=== PATIENT | male | born 1990 | race Caucasian/White ===

== ENCOUNTER 2018-03-12 13:49 | Emergency (ER) | payer OTHER, SELFPAY ==
[2018-03-12 13:50] VITALS: BP 110/72; PULSE 80; RESP 18; TEMP 36.1; O2SAT 100
[2018-03-12 15:02] LABS: INR 1.4 (0.9-1.3); Prothrombin Time 15.8 SECONDS (10.1-12.7)
[2018-03-12 15:05] LABS: PTT Partial Thromboplastin Tim 36 SECONDS (26.4-36.2)
[2018-03-12 15:06] LABS: Add Manual Diff / Slide Review NO; Eosinophils Percent Auto 2.3 % (2-4); Hematocrit 39.8 % (41-53); Hemoglobin 13.9 g/dL (13.5-17.5); Lymphocytes Percent Auto 27.6 % (25-40); Mean Corpuscular HGB Conc 34.9 % (30-36); Mean Corpuscular Hemoglobin 30.9 PG (26-34); Mean Corpuscular Volume 88.5 fL (80-100); Monocytes Percent Auto 10.2 % (3-14); Neutrophils Absolute Auto 1900 /uL (3000-5900); Neutrophils Percent Auto 58.9 % (50-75); Platelet Count 151 X10^3/uL (150-400); Red Cell Distribution Width 15.3 % (11.6-14.8); White Blood Cell Count 3.3 X10^3/uL (4.5-11.0)
[2018-03-12 15:07] LABS: Albumin 3.8 g/dL (3.5-5.0); Albumin Globulin Ratio 1.1 (1.0-2.8); Alkaline Phosphatase 96 U/L (38-126); Bilirubin Total 5.9 mg/dL (0.2-1.3); Blood Urea Nitrogen 12 mg/dL (9-20); Calcium 8.8 mg/dL (8.4-10.2); Carbon Dioxide 34 mmol/L (22-32); Chloride 98 mmol/L (98-107); Estimated Glomerular Filt Rate > 60.0 mL/min (>60); Globulin 3.6 g/dL (1.7-4.1); Glucose 104 mg/dL (70-100); HEMOLYSIS < 15 (0-50); Lipase 57 U/L (23-300); Potassium 4.4 mmol/L (3.4-5.1); Sodium 140 mmol/L (137-145); Total Protein 7.4 g/dL (6.3-8.2)
[2018-03-12 15:31] LABS: Alanine Aminotransferase 3700 IU/L (21-72); Aspartate Aminotransferase 3117 IU/L (17-59)
--- NOTE | 2018-03-12 16:36 | DI.US.S_ITS ---
PROCEDURE: US ABDOMEN COMPLETE INDICATIONS: eleated liver enzyemes TECHNIQUE: Real-time scanning was performed of the abdominal and retroperitoneal organs, with image documentation. COMPARISON: None. FINDINGS: Liver: Liver is normal in size and homogeneous in echotexture. Gallbladder: No findings of gallstones or sludge are seen. The gallbladder wall is not thickened, measuring 3 mm or less. No specific pericholecystic fluid is seen. The sonographic Alonzo sign is negative. Biliary ducts: Intrahepatic bile ducts are non-dilated. Extrahepatic bile duct caliber measures 4 mm. Normal is 6-7 mm or less in diameter, or 10 mm or less post-cholecystectomy. Pancreas: Not seen, obscured by overlying bowel gas. Spleen: Spleen is mildly enlarged measuring 14.6 cm. No focal splenic abnormality is seen. Kidneys: Kidneys are normal in size and echotexture. Right kidney measures 12.6 cm long; left kidney measures 12.4 cm long. No hydronephrosis or nephrolithiasis. No solid masses. The renal cortex measures within normal limits for thickness. Aorta: Not seen, obscured by overlying bowel gas. Iliacs: Not seen, obscured by overlying bowel gas. IVC: Intrahepatic inferior vena cava is patent. Miscellaneous: No free abdominal fluid. IMPRESSION: No significant liver abnormality is seen by ultrasound. The gallbladder demonstrates a normal sonographic appearance. No biliary dilatation is seen. Mild splenomegaly. Dictated by: Sergio Alexander M.D. on 03/12/2018 at 16:40 Approved by: Sergio Alexander M.D. on 03/12/2018 at 16:42
--- NOTE | 2018-03-12 17:01 | PC.NURSE ---
pt concern r/t lethargic with dark colored urine for 2 days, reports hx of kidney failure r/t infection/ivda, abd soft, difusely tender, denies nausea/vomiting/diarrhea/fever or other sx, sclera appear yellowed, reports drinking heavily x1 week, no ETOH x2 days per pt
[2018-03-12 17:30] LABS: Acetaminophen < 10 ug/mL (10-30)
--- NOTE | 2018-03-12 18:44 | ED.MALEGU ---
HPI - Male Genitourinary General Chief complaint: Urogenital-Male Stated complaint: Thinks Kidney infection Time Seen by Provider: 03/12/18 18:10 Source: patient Mode of arrival: ambulatory Limitations: no limitations History of Present Illness HPI Narrative: 27-year-old male with a history of smoking and IV drug abuse presents with a chief complaint of dark urine for the past day which has since cleared. He denies any other symptoms such as fever or chills nor nausea or vomiting. He has no flank pain nor any UTI complaints such as dysuria, frequency or urgency. He denies any abdominal pain or jaundice. He is sexually active and has stated has a history of IV drug abuse but has been sometime Onset (ago): day(s) Duration: improved Severity: mild Relieving factors: none Exacerbating factors: none Related Data Sexually active: Yes Home Medications Medication Instructions Recorded Confirmed No Known Home Medications 03/12/18 03/12/18 Allergies Allergy/AdvReac Type Severity Reaction Status Date / Time furosemide [From Lasix] Allergy Intermediate Rash Verified 03/12/18 13:54 Review of Systems Review of Systems All systems reviewed & are unremarkable except as noted in HPI and below Constitutional Denies chills, Denies fever(s), Denies lethargy and Denies weakness Eyes Denies change in vision, Denies eye discharge, Denies irritation and Denies loss of vision ENT Ears, Nose, Mouth, and Throat: Denies change in voice, Denies neck pain and Denies sore throat Cardiovascular Denies chest pain, Denies irregular heart rhythm, Denies lightheadedness, Denies palpitations, Denies dyspnea, Denies dyspnea on exertion and Denies orthopnea Respiratory Denies cough, Denies dyspnea, Denies dyspnea on exertion and Denies wheezing Gastrointestinal Gastrointestinal: Denies abdominal pain, Denies change in bowel habits, Denies diarrhea, Denies nausea and Denies vomiting Genitourinary Denies hematuria, Denies flank pain, Denies urinary incontinence and Denies urinary urgency Comments: dark urine Musculoskeletal Denies neck pain Integumentary/Breasts Denies pruritus, Denies erythema, Denies rash and Denies wounds Neurologic Denies confusion, Denies loss of vision and Denies weakness Psychiatric Denies anxiety, Denies confusion, Denies depression, Denies homicidal ideation and Denies suicidal ideation Endocrine Denies palpitations Hematologic/Lymphatic Denies easy bruising Allergic/Immunologic Denies wheezing [facility] Medical History Acute renal failure (Acute) Anemia (Acute) 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 HEAD: Atraumatic. Normocephalic. No temporal or scalp tenderness. EYES: Pupils equal round and reactive. Extraocular motions intact. No scleral icterus. No injection or drainage. ENT: Nose without bleeding, purulent drainage or septal hematoma. Throat without erythema, tonsillar hypertrophy or exudate. Uvula midline. Airway patent. NECK: Trachea midline. No JVD or lymphadenopathy. Supple, nontender, no meningeal signs. CARDIOVASCULAR: Regular rate and rhythm without murmurs, gallops, or rubs. RESPIRATORY: Clear to auscultation. Breath sounds equal bilaterally. No wheezes, rales, or rhonchi. GASTROINTESTINAL: Abdomen soft, non-tender, nondistended. No hepato-splenomegaly, or palpable masses. No guarding. EXTREMITIES: No clubbing, cyanosis, or edema. No joint tenderness, effusion, or edema noted. BACK: Nontender without deformity or crepitance. No flank tenderness. NEURO: AOx3. SKIN: No rash or erythema. Initial Vital Signs Initial Vital Signs: Vital Signs Temperature 97.0 F L 03/12/18 13:50 Pulse Rate 80 03/12/18 13:50 Respiratory Rate 18 03/12/18 13:50 Blood Pressure 110/72 03/12/18 13:50 Pulse Oximetry 100 03/12/18 13:50 Course Orders Ordered: ED Orders 03/12/18 14:38 Complete Blood Count AUTO DIFF Stat Comprehensive Metabolic Panel Stat Lipase Stat Partial Thromboplastin Time Stat Prothrombin Time INR Stat 03/12/18 16:36 US abdomen complete Stat 03/12/18 16:55 Acetaminophen Stat Hepatitis Acute Panel Stat Discontinued Medications Nicotine (Nicoderm) 21 mg TOP NOW ONE Stop: 03/12/18 18:42 Last Admin: 03/12/18 18:48 Dose: 21 mg Consultations Consultation #1: call to GI at [facility] to discuss elevation of transaminases in the abscence of any syptoms. Strong suggestion of Hep B, no therapeutic recommendations, but they ask that we have patient follow up in the GI clinic and avoid sharing needles or having sexual contact until further testing can be accomplished. Vital Signs - 8 hr 03/12/18 19:30 Pulse Rate 77 Respiratory Rate 16 Blood Pressure 117/82 Pulse Oximetry 100 MDM - Male Genitourinary Differential Diagnosis Likely urinary tract infection, urethritis and acute retention of urine Lab Data Result diagrams: 03/12/18 14:38 03/12/18 14:38 Lab Results 03/12/18 03/12/18 03/12/18 Range/Units 14:38 14:38 14:38 WBC 3.3 L (4.5-11.0) X10^3/uL RBC 4.50 (4.5-5.9) X10^6/uL Hgb 13.9 (13.5-17.5) g/dL Hct 39.8 L (41-53) % MCV 88.5 (80-100) fL MCH 30.9 (26-34) PG MCHC 34.9 (30-36) % RDW 15.3 H (11.6-14.8) % Plt Count 151 (150-400) X10^3/uL Neut % (Auto) 58.9 (50-75) % Lymph % (Auto) 27.6 (25-40) % [place] % (Auto) 10.2 (3-14) % Eos % (Auto) 2.3 (2-4) % Baso % (Auto) 1.0 (0-2) % Neut # (Auto) 1900 L (4700-3901) /uL PT 15.8 H (10.1-12.7) SECONDS INR 1.4 H (0.9-1.3) APTT 36 (26.4-36.2) SECONDS Sodium 140 (137-145) mmol/L Potassium 4.4 (3.4-5.1) mmol/L Chloride 98 (98-107) mmol/L Carbon Dioxide 34 H (22-32) mmol/L BUN 12 (9-20) mg/dL Creatinine 0.80 (0.66-1.25) mg/dL Estimated GFR > 60.0 (>60) mL/min BUN/Creatinine Ratio 15.0 (6-22) Glucose 104 H (70-100) mg/dL Calcium 8.8 (8.4-10.2) mg/dL Total Bilirubin 5.9 H (0.2-1.3) mg/dL AST 3117 H (17-59) IU/L ALT 3700 H (21-72) IU/L Alkaline Phosphatase 96 (38-126) U/L Total Protein 7.4 (6.3-8.2) g/dL Albumin 3.8 (3.5-5.0) g/dL Globulin 3.6 (1.7-4.1) g/dL Albumin/Globulin Ratio 1.1 (1.0-2.8) Lipase 57 (23-300) U/L Acetaminophen (10-30) ug/mL 03/12/18 Range/Units 16:55 WBC (4.5-11.0) X10^3/uL RBC (4.5-5.9) X10^6/uL Hgb (13.5-17.5) g/dL Hct (41-53) % MCV (80-100) fL MCH (26-34) PG MCHC (30-36) % RDW (11.6-14.8) % Plt Count (150-400) X10^3/uL Neut % (Auto) (50-75) % Lymph % (Auto) (25-40) % Cache % (Auto) (3-14) % Eos % (Auto) (2-4) % Baso % (Auto) (0-2) % Neut # (Auto) (6178-9074) /uL PT (10.1-12.7) SECONDS INR (0.9-1.3) APTT (26.4-36.2) SECONDS Sodium (137-145) mmol/L Potassium (3.4-5.1) mmol/L Chloride (98-107) mmol/L Carbon Dioxide (22-32) mmol/L BUN (9-20) mg/dL Creatinine (0.66-1.25) mg/dL Estimated GFR (>60) mL/min BUN/Creatinine Ratio (6-22) Glucose (70-100) mg/dL Calcium (8.4-10.2) mg/dL Total Bilirubin (0.2-1.3) mg/dL AST (17-59) IU/L ALT (21-72) IU/L Alkaline Phosphatase (38-126) U/L Total Protein (6.3-8.2) g/dL Albumin (3.5-5.0) g/dL Globulin (1.7-4.1) g/dL Albumin/Globulin Ratio (1.0-2.8) Lipase (23-300) U/L Acetaminophen < 10 L (10-30) ug/mL Urine Dip Bedside Urine Glucose Negative Bedside Urine Bilirubin + 1 Bedside Urine Ketone +/- 5 Urine Specific [place] 1.025 Bedside Urine Occult Blood +++ Bedside Urine pH 6.0 Bedside Urine Protein +/- 15 Bedside Urine Urobilinogen 1+ 2mg Bedside Urine Nitrite - Negative Bedside Urine Leukocytes - Negative Esterase MDM Narrative Medical decision making narrative: Patient has significant elevation in transaminases but no symptoms such as pain, nausea or vomiting, change in bowel habits or fatigue. He does have a history drug abuse and is sexually active and this picture is highly suggestive hepatitis-B. Ultrasound is unremarkable. GI consult suggest discharge and close follow up Discharge Plan Departure Patient Disposition: Home Clinical Impression: Acute hepatitis Discharge Date/Time: 03/12/18 19:32 Interventions: ED Discharge Assessment Last Done: 03/12/18 19:30 Instructions: DI for Acute Hepatitis B Activity Restrictions/Additional Instructions: *You have been diagnosed with [ Acute Hepatitis ] *What to do: *Avoid tylenol and alcohol. No sexual contact until follow up with GI *Follow up with your primary care provider in 2-3 days also contact the [facility] ([phone]), call for an appointment. Let them know you were seen in the Emergency Department and that we ask that you be seen in follow up *Return to ER if you should have any new, worsening or concerning symptoms Prescriptions: No Action No Known Home Medications RF: 0 Referrals: Ravin Christianson MD [Non-Staff] - Kiera Llanes PA-C [Non-Staff] -
[2018-03-12] MEDS: NICOTINE 21 MG PATCH TOP (18:48)
[2018-03-12 19:30] VITALS: BP 117/82; PULSE 77; RESP 16; O2SAT 100
--- NOTE | 2018-03-12 23:19 | ED_ITS ---
HPI - Male Genitourinary General Chief complaint: Urogenital-Male Stated complaint: Thinks Kidney infection Time Seen by Provider: 03/12/18 18:10 Source: patient Mode of arrival: ambulatory Limitations: no limitations History of Present Illness HPI Narrative: 27-year-old male with a history of smoking and IV drug abuse presents with a chief complaint of dark urine for the past day which has since cleared. He denies any other symptoms such as fever or chills nor nausea or vomiting. He has no flank pain nor any UTI complaints such as dysuria, frequency or urgency. He denies any abdominal pain or jaundice. He is sexually active and has stated has a history of IV drug abuse but has been sometime Onset (ago): day(s) Duration: improved Severity: mild Relieving factors: none Exacerbating factors: none Related Data Sexually active: Yes Home Medications Medication Instructions Recorded Confirmed No Known Home Medications 03/12/18 03/12/18 Allergies Allergy/AdvReac Type Severity Reaction Status Date / Time furosemide [From Lasix] Allergy Intermediate Rash Verified 03/12/18 13:54 Review of Systems Review of Systems All systems reviewed & are unremarkable except as noted in HPI and below Constitutional Denies chills, Denies fever(s), Denies lethargy and Denies weakness Eyes Denies change in vision, Denies eye discharge, Denies irritation and Denies loss of vision ENT Ears, Nose, Mouth, and Throat: Denies change in voice, Denies neck pain and Denies sore throat Cardiovascular Denies chest pain, Denies irregular heart rhythm, Denies lightheadedness, Denies palpitations, Denies dyspnea, Denies dyspnea on exertion and Denies orthopnea Respiratory Denies cough, Denies dyspnea, Denies dyspnea on exertion and Denies wheezing Gastrointestinal Gastrointestinal: Denies abdominal pain, Denies change in bowel habits, Denies diarrhea, Denies nausea and Denies vomiting Genitourinary Denies hematuria, Denies flank pain, Denies urinary incontinence and Denies urinary urgency Comments: dark urine Musculoskeletal Denies neck pain Integumentary/Breasts Denies pruritus, Denies erythema, Denies rash and Denies wounds Neurologic Denies confusion, Denies loss of vision and Denies weakness Psychiatric Denies anxiety, Denies confusion, Denies depression, Denies homicidal ideation and Denies suicidal ideation Endocrine Denies palpitations Hematologic/Lymphatic Denies easy bruising Allergic/Immunologic Denies wheezing [facility] Medical History Acute renal failure (Acute) Anemia (Acute) 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 HEAD: Atraumatic. Normocephalic. No temporal or scalp tenderness. EYES: Pupils equal round and reactive. Extraocular motions intact. No scleral icterus. No injection or drainage. ENT: Nose without bleeding, purulent drainage or septal hematoma. Throat without erythema, tonsillar hypertrophy or exudate. Uvula midline. Airway patent. NECK: Trachea midline. No JVD or lymphadenopathy. Supple, nontender, no meningeal signs. CARDIOVASCULAR: Regular rate and rhythm without murmurs, gallops, or rubs. RESPIRATORY: Clear to auscultation. Breath sounds equal bilaterally. No wheezes , rales, or rhonchi. GASTROINTESTINAL: Abdomen soft, non-tender, nondistended. No hepato-splenomegaly , or palpable masses. No guarding. EXTREMITIES: No clubbing, cyanosis, or edema. No joint tenderness, effusion, or edema noted. BACK: Nontender without deformity or crepitance. No flank tenderness. NEURO: AOx3. SKIN: No rash or erythema. Initial Vital Signs Initial Vital Signs: Vital Signs Temperature 97.0 F L 03/12/18 13:50 Pulse Rate 80 03/12/18 13:50 Respiratory Rate 18 03/12/18 13:50 Blood Pressure 110/72 03/12/18 13:50 Pulse Oximetry 100 03/12/18 13:50 Course Orders Ordered: ED Orders 03/12/18 14:38 Complete Blood Count AUTO DIFF Stat Comprehensive Metabolic Panel Stat Lipase Stat Partial Thromboplastin Time Stat Prothrombin Time INR Stat 03/12/18 16:36 US abdomen complete Stat 03/12/18 16:55 Acetaminophen Stat Hepatitis Acute Panel Stat Discontinued Medications Nicotine (Nicoderm) 21 mg TOP NOW ONE Stop: 03/12/18 18:42 Last Admin: 03/12/18 18:48 Dose: 21 mg Consultations Consultation #1: call to GI at [facility] to discuss elevation of transaminases in the abscence of any syptoms. Strong suggestion of Hep B, no therapeutic recommendations, but they ask that we have patient follow up in the GI clinic and avoid sharing needles or having sexual contact until further testing can be accomplished. Vital Signs - 8 hr 03/12/18 19:30 Pulse Rate 77 Respiratory Rate 16 Blood Pressure 117/82 Pulse Oximetry 100 MDM - Male Genitourinary Differential Diagnosis Likely urinary tract infection, urethritis and acute retention of urine Lab Data Result diagrams: 03/12/18 14:38 03/12/18 14:38 Lab Results 03/12/18 03/12/18 03/12/18 Range/Units 14:38 14:38 14:38 WBC 3.3 L (4.5-11.0) X10^3/uL RBC 4.50 (4.5-5.9) X10^6/uL Hgb 13.9 (13.5-17.5) g/dL Hct 39.8 L (41-53) % MCV 88.5 (80-100) fL MCH 30.9 (26-34) PG MCHC 34.9 (30-36) % RDW 15.3 H (11.6-14.8) % Plt Count 151 (150-400) X10^3/uL Neut % (Auto) 58.9 (50-75) % Lymph % (Auto) 27.6 (25-40) % [place] % (Auto) 10.2 (3-14) % Eos % (Auto) 2.3 (2-4) % Baso % (Auto) 1.0 (0-2) % Neut # (Auto) 1900 L (0970-6882) /uL PT 15.8 H (10.1-12.7) SECONDS INR 1.4 H (0.9-1.3) APTT 36 (26.4-36.2) SECONDS Sodium 140 (137-145) mmol/L Potassium 4.4 (3.4-5.1) mmol/L Chloride 98 (98-107) mmol/L Carbon Dioxide 34 H (22-32) mmol/L BUN 12 (9-20) mg/dL Creatinine 0.80 (0.66-1.25) mg/dL Estimated GFR > 60.0 (>60) mL/min BUN/Creatinine Ratio 15.0 (6-22) Glucose 104 H (70-100) mg/dL Calcium 8.8 (8.4-10.2) mg/dL Total Bilirubin 5.9 H (0.2-1.3) mg/dL AST 3117 H (17-59) IU/L ALT 3700 H (21-72) IU/L Alkaline Phosphatase 96 (38-126) U/L Total Protein 7.4 (6.3-8.2) g/dL Albumin 3.8 (3.5-5.0) g/dL Globulin 3.6 (1.7-4.1) g/dL Albumin/Globulin Ratio 1.1 (1.0-2.8) Lipase 57 (23-300) U/L Acetaminophen (10-30) ug/mL 03/12/18 Range/Units 16:55 WBC (4.5-11.0) X10^3/uL RBC (4.5-5.9) X10^6/uL Hgb (13.5-17.5) g/dL Hct (41-53) % MCV (80-100) fL MCH (26-34) PG MCHC (30-36) % RDW (11.6-14.8) % Plt Count (150-400) X10^3/uL Neut % (Auto) (50-75) % Lymph % (Auto) (25-40) % [place] % (Auto) (3-14) % Eos % (Auto) (2-4) % Baso % (Auto) (0-2) % Neut # (Auto) (5145-2616) /uL PT (10.1-12.7) SECONDS INR (0.9-1.3) APTT (26.4-36.2) SECONDS Sodium (137-145) mmol/L Potassium (3.4-5.1) mmol/L Chloride (98-107) mmol/L Carbon Dioxide (22-32) mmol/L BUN (9-20) mg/dL Creatinine (0.66-1.25) mg/dL Estimated GFR (>60) mL/min BUN/Creatinine Ratio (6-22) Glucose (70-100) mg/dL Calcium (8.4-10.2) mg/dL Total Bilirubin (0.2-1.3) mg/dL AST (17-59) IU/L ALT (21-72) IU/L Alkaline Phosphatase (38-126) U/L Total Protein (6.3-8.2) g/dL Albumin (3.5-5.0) g/dL Globulin (1.7-4.1) g/dL Albumin/Globulin Ratio (1.0-2.8) Lipase (23-300) U/L Acetaminophen < 10 L (10-30) ug/mL Urine Dip Bedside Urine Glucose Negative Bedside Urine Bilirubin + 1 Bedside Urine Ketone +/- 5 Urine Specific [place] 1.025 Bedside Urine Occult Blood +++ Bedside Urine pH 6.0 Bedside Urine Protein +/- 15 Bedside Urine Urobilinogen 1+ 2mg Bedside Urine Nitrite - Negative Bedside Urine Leukocytes - Negative Esterase MDM Narrative Medical decision making narrative: Patient has significant elevation in transaminases but no symptoms such as pain, nausea or vomiting, change in bowel habits or fatigue. He does have a history drug abuse and is sexually active and this picture is highly suggestive hepatitis-B. Ultrasound is unremarkable. GI consult suggest discharge and close follow up Discharge Plan Departure Patient Disposition: Home Clinical Impression: Acute hepatitis Discharge Date/Time: 03/12/18 19:32 Interventions: ED Discharge Assessment Last Done: 03/12/18 19:30 Instructions: DI for Acute Hepatitis B Activity Restrictions/Additional Instructions: *You have been diagnosed with [ Acute Hepatitis ] *What to do: *Avoid tylenol and alcohol. No sexual contact until follow up with GI *Follow up with your primary care provider in 2-3 days also contact the [facility] ([phone]), call for an appointment. Let them know you were seen in the Emergency Department and that we ask that you be seen in follow up *Return to ER if you should have any new, worsening or concerning symptoms Prescriptions: No Action No Known Home Medications RF: 0 Referrals: Ravin Christianson MD [Non-Staff] - Kiera Llanes PA-C [Non-Staff] -
[2018-03-19 05:30] LABS: Hepatitis A Antibody IgM NONREACTIVE; Hepatitis B Core Antibody IgM NONREACTIVE; Hepatitis B Surface Antigen NONREACTIVE; Hepatitis C Antibody REACTIVE
== END 2018-03-12 19:32 | disposition home or self-care (01) ==
PROVIDERS: Emergency Medicine; Emergency Provider Emergency Medicine
DX: B17.9 Acute viral hepatitis, unspecified (principal)
CPT/HCPCS: 36415; 36591; 76700; 80053; 80074; 80329; 81003; 83690; 85025; 85610; 85730; 99282; 99284; G0480

== ENCOUNTER 2019-02-24 01:20 | Emergency (ER) | payer OTHER, MEDICAID, SELFPAY ==
[2019-02-24 01:25] VITALS: BP 126/78; PULSE 95; RESP 15; TEMP 36.9; O2SAT 100; BMI 23.6
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
--- NOTE | 2019-02-24 02:10 | PC.NURSE ---
wound to left face washed with sterile water, dsd placed over it and secured with tape
== END 2019-02-24 02:11 | disposition home or self-care (01) ==
LOC: ED 02:08
PROVIDERS: Emergency Provider Emergency Medicine
DX: S00.03XA Contusion of scalp, initial encounter (principal); S00.83XA Contusion of other part of head, initial encounter; S00.81XA Abrasion of other part of head, initial encounter; Y09 Assault by unspecified means
CPT/HCPCS: 99282

== ENCOUNTER 2019-04-13 14:59 | Emergency (ER) | payer OTHER, MEDICAID, SELFPAY ==
[2019-04-13 15:04] VITALS: BP 109/67; PULSE 94; RESP 22; TEMP 36.1; O2SAT 100
--- NOTE | 2019-04-13 20:05 | ED_ITS ---
HPI - Skin/Abscess/Foreign Bdy <LUBNA Khan - Last Filed: 04/13/19 20:08> General Chief complaint: Skin/Abscess/Foreign Body Stated complaint: states infection of right arm Time Seen by Provider: 04/13/19 15:14 Source: patient Mode of arrival: Ambulatory Limitations: no limitations History of Present Illness HPI narrative: The patient is a 28-year-old male current smoker with history of IV drug use who presents with a chief complaint of an infection in his arm. He states has been there for several days on his right side. He states he has had an abscess that is burst and has been draining pus. He denies any fevers nausea vomiting or diarrhea. He states he thinks he needs antibiotics. Related Data Previous Rx's Medication Instructions Recorded clindamycin HCl 300 mg PO QID #40 cap 04/13/19 Allergies Allergy/AdvReac Type Severity Reaction Status Date / Time furosemide [From Lasix] Allergy Intermediate Rash Verified 03/15/19 09:09 Sulfa (Sulfonamide Allergy Verified 03/15/19 09:09 Antibiotics) Review of Systems <LUBNA Khan - Last Filed: 04/13/19 20:08> Review of Systems Narrative: GENERAL: Denies chills, fatigue, malaise, fever, sweats. HEENT: Denies sinus pain, ear pain, sore throat, difficulty swallowing, dizziness. RESPIRATORY: Denies dyspnea, cough, wheezing, hemoptysis, sputum. CARDIOVASCULAR: Denies chest pain, palpitations, orthopnea, edema, GASTROINTESTINAL: Denies nausea, vomiting, abdominal pain, diarrhea, constipation, melena. : Denies dysuria, frequency, incontinence, hematuria, urinary retention. MUSCULOSKELETAL: denies weakness, joint pain, or bony pain SKIN: See HPI NEUROLOGIC: Denies weakness, headache, numbness, change in speech, confusion, seizures, incoordination. PSYCHIATRIC: No concerning psychosocial issues. 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 Normocephalic. No temporal or scalp tenderness. EYES: Pupils equal round and reactive. Extraocular motions intact. No scleral icterus. No injection or drainage. ENT: Nose without bleeding, purulent drainage or septal hematoma. Throat without erythema, tonsillar hypertrophy or exudate. Uvula midline. Airway patent. NECK: Trachea midline. No JVD or lymphadenopathy. Supple, nontender, no meningeal signs. CARDIOVASCULAR: Regular rate and rhythm without murmurs, gallops, or rubs. RESPIRATORY: Clear to auscultation. Breath sounds equal bilaterally. No wheezes, rales, or rhonchi. GASTROINTESTINAL: Abdomen soft, non-tender, nondistended. No hepato- splenomegaly, or palpable masses. No guarding. No cough. No increased respiratory effort. No accessory muscle use. EXTREMITIES: See skin exam. Positive radial pulse right hand. BACK: Nontender without deformity or crepitance. No flank tenderness. NEURO: AOx3. SKIN: 6 cm of diffuse erythema on his right forearm. Palpable fluctuance, approximately 3 cm. Actively draining purulence discharge. Initial Vital Signs Initial Vital Signs: Vital Signs Temperature 96.9 F L 04/13/19 15:04 Pulse Rate 94 H 04/13/19 15:04 Respiratory Rate 22 04/13/19 15:04 Blood Pressure 109/67 04/13/19 15:04 Pulse Oximetry 100 04/13/19 15:04 <Yu Ceja MD - Last Filed: 04/17/19 07:15> Initial Vital Signs Initial Vital Signs: Vital Signs Temperature 96.9 F L 04/13/19 15:04 Pulse Rate 94 H 04/13/19 15:04 Respiratory Rate 22 04/13/19 15:04 Blood Pressure 109/67 04/13/19 15:04 Pulse Oximetry 100 04/13/19 15:04 Course <SAPNA KhanBC - Last Filed: 04/13/19 20:08> Orders Ordered: ED Orders 04/13/19 15:58 Wound Culture and Gram Stain Stat Vital Signs Vital signs: Vital Signs - 8 hr 04/13/19 15:04 Temperature 96.9 F L Pulse Rate 94 H Respiratory Rate 22 Blood Pressure 109/67 Pulse Oximetry 100 <Yu Ceja MD - Last Filed: 04/17/19 07:15> Orders Ordered: ED Orders 04/13/19 15:58 Wound Culture and Gram Stain Stat Vital Signs Vital signs: Vital Signs - 8 hr 04/13/19 15:04 Temperature 96.9 F L Pulse Rate 94 H Respiratory Rate 22 Blood Pressure 109/67 Pulse Oximetry 100 MDM - Skin/Abscess/Foreign Bdy <LUBNA Khan - Last Filed: 04/13/19 20:08> MDM Narrative Medical decision making narrative: The patient is a 28-year-old male who presents with a chief complaint of an infection in his forearm. His exam notes a currently draining abscess. A wound culture was taken and is pending at this time. Given his sulfa allergy, placed him on clindamycin encourage him to take a probiotic or yogurt. I discussed at length the importance of following up with primary care provider, discussed back for signs of worsening infection such as fever nausea vomiting or diarrhea. Patient has no questions or concerns upon discharge and states understanding of return precautions as well as follow-up care. Discharge Plan Departure Patient Disposition: Home Clinical Impression: Cellulitis Qualifiers: Site of cellulitis: extremity Site of cellulitis of extremity: upper extremity Laterality: right Qualified Code(s): L03.113 - Cellulitis of right upper limb Abscess of skin or subcutaneous tissue Qualifiers: Site of cutaneous abscess: extremity Site of cutaneous abscess of extremity: upper extremity Laterality: right Qualified Code(s): L02.413 - Cutaneous abscess of right upper limb Discharge Date/Time: 04/13/19 16:10 Instructions: DI for Cellulitis -- Adult, DI for Skin Abscess Activity Restrictions/Additional Instructions: Today we found a skin infection with an abscess. I am not draining the abscess as it is draining already. We have a wound culture pending at this time. If we need to change her antibiotics, you will get a phone call in 2-3 days. Please monitor for fever, vomiting, diarrhea spreading redness or signs of worsening infection. Please be evaluated if these occur. Please come back to the emergency department for any acute concerns. I suggest taking a probiotic or yogurt with your antibiotic. I suggest warm compresses several times a day. Prescriptions: New clindamycin HCl 300 mg capsule 300 mg PO QID Qty: 40 RF: 0
== END 2019-04-13 16:10 | disposition home or self-care (01) ==
PROVIDERS: Emergency Provider Nurse Practitioner Family
DX: L03.113 Cellulitis of right upper limb (principal); L02.413 Cutaneous abscess of right upper limb
CPT/HCPCS: 87070; 87075; 87077; 87147; 87186; 87205; 99282; 99283

== ENCOUNTER 2019-11-08 02:56 | Emergency (ER) | payer OTHER, MEDICAID, SELFPAY ==
[2019-11-08 03:35] VITALS: BP 130/71; PULSE 113; RESP 18; TEMP 36.4; O2SAT 98
--- NOTE | 2019-11-08 03:59 | ED.SKABFB ---
HPI - Skin/Abscess/Foreign Bdy General Chief complaint: Skin/Abscess/Foreign Body Stated complaint: right leg abscess popped open thinks infected Time Seen by Provider: 11/08/19 03:22 Source: patient Mode of arrival: Ambulatory History of Present Illness HPI narrative: 29-year-old gentleman with a history of opiate use disorder presents with a right medial calf abscess. It had begun draining 2-3 days ago and he has kept a dressing over it. He accompanies his girlfriend to the emergency department today and checks in to have his own abscess fully evaluated. Wound dressing is removed the abscess has resolved there is a 1-1/2 cm shallow ulcer with some moderate area of surrounding cellulitis. Related Data Previous Rx's Medication Instructions Recorded clindamycin HCl 300 mg PO QID #40 cap 04/13/19 Allergies Allergy/AdvReac Type Severity Reaction Status Date / Time furosemide [From Lasix] Allergy Intermediate Rash Verified 03/15/19 09:09 Sulfa (Sulfonamide Allergy Verified 03/15/19 09:09 Antibiotics) Review of Systems Review of Systems Narrative: Pertinent positive and negative findings as per HPI Remainder of review of systems is otherwise unremarkable for Constitutional: Fevers, chills, weakness CV: Chest pain, palpitations, dyspnea on exertion Respiratory: Cough, wheeze, dyspnea GI: Nausea, vomiting, diarrhea, change in bowel habits, black or bloody stools MS: Muscle weakness, numbness, Neuro: Syncope, dizziness, tingling Patient History Medical History Acute renal failure (Acute) Anemia (Acute) Drug abuse (Acute) Endocarditis (Acute) Endocarditis (Acute) 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 Right medial calf with shallow superficial ulcer and 2 cm of surrounding cellulitis without significant calf edema and no tenderness with flexion of the foot. Neurologic: Grossly intact no obvious asymmetries or abnormalities Psych, appropriate insight and affect, cooperative Initial Vital Signs Initial Vital Signs: Vital Signs Temperature 97.5 F L 11/08/19 03:35 Pulse Rate 113 H 11/08/19 03:35 Respiratory Rate 18 11/08/19 03:35 Blood Pressure 130/71 11/08/19 03:35 Pulse Oximetry 98 11/08/19 03:35 Course Orders Ordered: Discontinued Medications Bacitracin (Bacitracin) 1 applic TOP NOW ONE Stop: 11/08/19 05:30 Clindamycin HCl (Cleocin) 300 mg PO NOW ONE Stop: 11/08/19 05:30 Vital Signs Vital signs: Vital Signs - 8 hr 11/08/19 03:35 Temperature 97.5 F L Pulse Rate 113 H Respiratory Rate 18 Blood Pressure 130/71 Pulse Oximetry 98 MDM - Skin/Abscess/Foreign Bdy Medical Records Attestation: I reviewed the patient's medical records. MDM Narrative Medical decision making narrative: Ulcer medial right calf from ?skin popping? his now drain nicely with no intervention needed however developing cellulitis. Will start him on clindamycin is he is allergic to Septra. No evidence of sepsis or overwhelming infection at this time. He states he is planning to return to [facility] to get restarted on Suboxone and away from heroin. Encouraged him to follow through with those plans. He is safe for home discharge at this time Discharge Plan Departure Patient Disposition: Home Clinical Impression: Opioid use disorder Abscess of skin or subcutaneous tissue Qualifiers: Site of cutaneous abscess: extremity Site of cutaneous abscess of extremity: lower extremity Laterality: left Qualified Code(s): L02.416 - Cutaneous abscess of left lower limb Instructions: DI for Cellulitis -- Adult Activity Restrictions/Additional Instructions: Thank you for coming in this evening The wound on your right calf has drained and has left a superficial ulcer that should heal nicely with antibiotics. There is a bit of surrounding cellulitis. Please keep this area as clean and dry as she can. You have been given the 1st dose of antibiotic, clindamycin. I have given you a prescription in you will need 7 days of continue treatment. If you noticing additional sites of increasing redness or abscess formation, shortness of breath, increased fever or palpitations please feel free to return to the emergency department I encourage you to follow-up with [facility] and get back to Suboxone and away from heroin. I wish you the best Prescriptions: No Action clindamycin HCl 300 mg capsule 300 mg PO QID Qty: 40 RF: 0
[2019-11-08] MEDS: BACITRACIN OINT 0.9 GM PCKT 1 APPLIC TOP (05:36)
[2019-11-08] MEDS: CLINDAMYCIN 150 MG CAPSULE 300 MG PO (05:36)
[2019-11-08 05:45] VITALS: BP 132/84; PULSE 87; RESP 16; TEMP 36.4; O2SAT 100
== END 2019-11-08 05:45 | disposition home or self-care (01) ==
PROVIDERS: Emergency Provider Emergency Medicine
DX: L02.416 Cutaneous abscess of left lower limb (principal); F11.20 Opioid dependence, uncomplicated; F15.10 Other stimulant abuse, uncomplicated
CPT/HCPCS: 99283

== ENCOUNTER → 2024-03-10 14:00 | Outpatient (CLI) | payer OTHER, MEDICAID, SELFPAY ==
--- NOTE | 2024-03-10 14:01 | DI.RAD.S_ITS ---
PROCEDURE: XR TIBIA FUBULA RT 2V INDICATIONS: Fractured leg TECHNIQUE: 2 views of the tibia and fibula were acquired. COMPARISON: None. FINDINGS: Bones: Overlying casting material limits finer bony detail. Comminuted fracture of the distal tibia. Mildly displaced and comminuted fracture of the distal fibula. No suspicious bony lesions. Soft tissues: No suspicious soft tissue calcifications or masses. IMPRESSION: Comminuted and displaced fractures of the distal tibia and fibula status post splinting. Recommend comparison with prior imaging if available. Dictated by: Doyle Willson M.D. on 03/11/2024 at 11:05 Approved by: Doyle Willson M.D. on 03/11/2024 at 11:09
== END ==
PROVIDERS: Referring Provider Nurse Practitioner Family; Visit Provider Nurse Practitioner Family
DX: S82.391A Other fracture of lower end of right tibia, initial encounter for closed fracture (principal); S82.832A Other fracture of upper and lower end of left fibula, initial encounter for closed fracture; X58.XXXA Exposure to other specified factors, initial encounter
CPT/HCPCS: 73590

== ENCOUNTER 2024-03-30 13:06 | Day surgery (SDC) | payer OTHER, MEDICAID, SELFPAY ==
[2024-03-28 14:54] VITALS: BMI 23.6
[2024-03-30] VITALS (11 sets, daily range): BP systolic 74–103; BP diastolic 32–83; PULSE 68–86; RESP 8–20; TEMP 36.3–36.6; O2SAT 95–100; BMI 23.6
--- NOTE | 2024-03-30 | DI.RAD.S_ITS ---
PROCEDURE: XR ANKLE RT MIN 3V INDICATIONS: ORIF TECHNIQUE: Low resolution intraoperative fluoroscopic spot films were obtained COMPARISON: None. FINDINGS: Intraoperative fluoroscopic spot films show fibular and distal tibial instrumentation and good position transfixing distal fibular and tibial fractures IMPRESSION: Fluoroscopic guidance Approved by: Beck Parsons M.D. on 03/31/2024 at 16:45
[2024-03-30 14:45] LABS: COVID19 -Nasal RAPID Negative (Negative)
--- NOTE | 2024-03-30 14:52 | PM.PREOP ---
Pre-operative Note Interval Note History & Physical reviewed/Exam performed by Physician: Yes Changes to H&P: No
[2024-03-30] MEDS: VANCOMYCIN 1,000 MG/200 ML PIGGYBACK 200 MG IV (15:40)
--- NOTE | 2024-03-30 16:03 | SUR.PREOP ---
Time out 1531 Block start time 1532 . Monitoring initiated and maintained throughout procedure. Oxygen and medications given by anesthesiologist Patient remained stable throughout procedure, no adverse reactions noted. Block end time 1543
[2024-03-30] MEDS: CEFAZOLIN 2 GM/100 ML PREMIX 100 ML IV (16:08)
--- NOTE | 2024-03-30 16:29 | SUR.OPER ---
Supine on padded OR bed. Pillow under head, arms secured on padded armboards <90 degree abduction. Safety belt across torso. Non-operative leg secured with tape over blanket over lower leg. Operative leg bumped with blankets secured to bed with tape.
[2024-03-30] MEDS: BUPIVACAINE 0.25% (PF) 30 ML, EPINEPHrine 0.15 MG INJ (16:43)
--- NOTE | 2024-03-30 18:15 | P.OP_ITS ---
Operative Date/Time/Diagnoses Date of procedure: 03/30/24 Time of procedure: 16:00 Pre-op diagnosis: Displaced tibial pilon fracture and distal fibula fracture, right Post-op diagnosis: same Procedure & Clinicians Procedure: Open reduction internal fixation tibia and fibula for pilon fracture, right CPT code 58134 Procedure performed with modifier 22 for subacute fracture greater than 1-month-old. Fracture was nearly healed requiring extensive debridement of periosteum and essentially osteotomizing the fracture to reduce the articular surface requiring additional exposure dissection in time making the procedure significantly more difficult than a acute fracture. Same procedure as scheduled: Yes Indications: Patient is a 33-year-old gentleman that sustained articular fracture of his right ankle when he fell down [place]vine on February 21, 2024. He believes this was about 20 ft. He was reportedly seen at outside hospital where he was splinted and given instructions for orthopedic follow up. Per report he did not elect to receive treatment at the outside hospital and desire to establish care with us a month after original injury. The situation was medically complex including active intravenous substance abuse and nicotine use. Has a displaced intra-articular distal tibial pilon fracture and distal fibula fracture. Indic ated for operative treatment to restore his joint anatomy and help reduce the risks of posttraumatic arthritis and prolonged dysfunction. The risks and benefits of the procedure have been discussed with the patient and given the opportunity to ask questions. The risks of surgery include but are not limited to infection, malunion, nonunion, persistence of pain, damage to nerves and blood vessels, posttraumatic arthritis, DVT, PE, cardiopulmonary complications and . The patient expressed a thorough understanding of the risks and benefits of surgery and has elected to proceed. Consent was signed. We specifically discussed cessation of IV drug use and cessation from nicotine and tobacco products we discussed risks for infection, malunion nonunion DVT pulmonary embolism. He has no personal or known family history of venous thromboembolism Surgeon: Emily Clay Click Yes if Unassisted: Yes Anesthesia Type: General, Peripheral nerve block and Local Operative Notes Findings: Displaced pilon fracture involving the distal tibia and distal fibula. Comminution at the medial tibial metaphysis. On dissection there is significant soft callus formation and meticulous dissection was required to remove the periosteum and mobilize the fracture including using the osteotome to osteotomize the fracture to book it open and evaluate the talar joint surface for reduction. Visualized medial talar dome is intact. Posteriorly the posterior tibialis tendon was visualized and intact. Closure Type: primary Specimen(s): none sent Prosthetic devices, grafts, tissues, transplants, or devices: Right tibia: Arthrex 3 hole distal tibial locking plate. 3.5 nonlocking screws in the tibial shaft and 2.7 nonlocking and locking screws distally. Right fibula: Arthrex 80 mm x 3.5 solid screw Estimated Blood Loss (mL): 20 Blood products transfused: none Tourniquet time (min): 45 Procedure in detail: Patient was seen in the preoperative area the site of surgery was marked informed consent confirmed. This was the right lower extremity. The patient was brought back to the operating room by anesthesia team. A regional block was placed for postoperative pain control the patient was positioned supine. All bony prominences well padded. A well-padded thigh tourniquet was applied. The right lower extremity was prepped and draped in the standard sterile fashion. Formal time-out procedure was performed confirming the patient's side and site of surgery administration of appropriate preoperative antibiotic and appropriate implants. All were in agreement. Esmarch was used for exsanguination the tourniquet raised on the thigh to 250 mmHg. An approximately 12 cm medial incision was made over the medial malleolus dissection down through the skin and subcutaneous tissues to the level of the tibia was completed. Multiple blades were used to debride the soft callus around the fracture site. Posteriorly the posterior tibialis tendon was visualized and protected all the way distal. The apex of the fracture was ex posed. There was comminution in this area. The copious amounts of soft callus were removed with the scalpel and rongeur. Still the fracture was non mobile therefore the Moreland elevator and osteotome were used to osteotomize the pilon fracture in order to book it open and expose the distal tibia and talar dome articular surfaces. Joint was irrigated and debrided. Once the medial tibia was mobile this was then reduced carefully under direct visual and fluoroscopic guidance this was pinned in place and checked in multiple plane fluoroscopy. Once this was completed the Arthrex locking plate was fit to the bone and secured proximally through the oblong hole with a 3.5 cortical screw. This was then secured distally with a nonlocking 2.7 screw followed by locking 2.7 screws and nonlocking 3.5 screws shaft. Once this was completed attention was turned to separate fixation of the distal fibula fracture. The distal fibula fracture was identified this was a distal transverse fracture and reduced in adequate alignment after reduction of tibia. Decision was made for a minimally invasive approach to reduce risk of hardware prominence and wound complications in this medically complex patient. The small incision was made proximally cm distal to the tip of the fibula. Blunt dissection was taken down to the level of the fibula tip. The long 2.5 drill from the Arthrex set was used to drill intramedullary in the fibula across the fracture next a 80 mm x 3.5 cortical screw from the Arthrex set was used as an intramedullary screw and confirmed AP mortise and lateral planes to be within the intramedullary canal of the fibula for maintenance of reduction. Once this was completed tourniquet was released hemostasis was achieved. The wounds were irrigated and closed with 2-0 Vicryl 4-0 Monocryl and 3-0 nylon suture. Local anesthetic was injected. A sterile dressing was placed with Xeroform gauze Webril bulky Contreras cotton and a posterior and U splint in neutral dorsiflexion. The patient was then awoken from anesthesia and taken to the recovery room in good condition there were no immediate complications from this procedure. Counts were correct. Complications: none Post-operative Condition: stable Disposition: PACU Plan for aftercare: Nonweightbearing or touchdown for balance for 6 weeks. Aspirin for 6 weeks for DVT prophylaxis. Follow up in 2-3 weeks for suture removal. Keep splint clean dry and intact.
[2024-03-30] MEDS: OXYCODONE IR 5 MG TABLET PO ×2 (18:23→18:37)
== END 2024-03-30 18:56 | disposition home or self-care (01) ==
PROVIDERS: Referring Provider Orthopaedic Surgery Foot and Ankle Surgery; Visit Provider Orthopaedic Surgery Foot and Ankle Surgery
PROC: 0SSF04Z Reposition Right Ankle Joint with Internal Fixation Device, Open Approach (ICD-10-PCS; CPT 27828; principal; 2024-03-30 14:45)
DX: S82.871A Displaced pilon fracture of right tibia, initial encounter for closed fracture (principal); S82.831A Other fracture of upper and lower end of right fibula, initial encounter for closed fracture; F19.10 Other psychoactive substance abuse, uncomplicated; F17.200 Nicotine dependence, unspecified, uncomplicated; W17.89XA Other fall from one level to another, initial encounter
CPT/HCPCS: 27828; 64450; 73610; 76000; 87635; C1713; J0171; J0690; J1100; J1885; J2250; J2405; J2704; J3010